=== PATIENT | male | born 1995 | race Caucasian/White ===

== ENCOUNTER 2017-04-01 16:26 | Emergency (ER) | payer SELFPAY ==
[2017-04-01 16:32] VITALS: BP 120/65; PULSE 60; TEMP 98; BMI 26.3
--- NOTE | 2017-04-01 17:19 | PDOC ---
History of Present Illness - General Chief Complaint: Bite Stated Complaint: REDNESS TO AFFECTED AREA Time Seen by Provider: 04/01/17 16:49 History Source: Patient Exam Limitations: No Limitations - History of Present Illness Initial Comments: CHIEF COMPLAINT: 21 y/o afebrile male with no significant PMH c/o left leg wound. HISTORY OF PRESENT ILLNESS: The patient states he thinks he got a mosquito bite 2 days ago on his lower left leg. He started scratching at it and eventually he scratched the scab off. He states it then got red and started draining yellow fluid. He denies f/c, n/v/d, streaking, numbness/tingling in affected extremity. Vital signs on arrival are within normal limits. REVIEW OF SYSTEMS: GENERAL/CONSTITUTIONAL: No fever/chills. No weakness. No weight change. MUSCULOSKELETAL: +open wound to lower left leg. No neck or back pain. SKIN: No rash or easy bruising. NEUROLOGIC: No headache, vertigo, loss of consciousness, or loss of sensation. PHYSICAL EXAM: VITAL_SIGNS: within normal limits GENERAL_APPEARANCE: alert, cooperative, no obvious discomfort. The patient is ambulatory with normal gait. MENTAL_STATUS: speech clear, oriented X 3, responds appropriately to questions. NEURO: motor intact and sensory intact in injured extremity. EXTREMITIES: 0.5cm raised open wound on left distal, posterior lower extremity that is yellow and crusted with 1cm of surrounding tender and hard erythema. NO streaking. SKIN: warm, dry, good color. Past History - Past Medical History Allergies/Adverse Reactions: Allergies Allergy/AdvReac Type Severity Reaction Status Date / Time No Known Allergies Allergy Verified 04/01/17 16:32 Home Medications: Ambulatory Orders Amox-Tr/K Cl [Augmentin - 875Mg Tablet] 1 tab PO BID #14 tablet 04/01/17 Other medical history: NONE - Psycho/Social/Smoking Cessation Hx Suicidal Ideation: No Smoking History: Current every day smoker Number of Cigarettes Smoked Daily: 3 Information on smoking cessation initiated: Yes 'Breaking Loose' booklet given: 04/01/17 Hx Alcohol Use: Yes (RARE) Drug/Substance Use Hx: No Substance Use Type: None *Physical Exam - Vital Signs Last Vital Signs Temp Pulse Resp BP Pulse Ox 98.0 F 60 20 120/65 99 04/01/17 16:30 04/01/17 16:30 04/01/17 16:30 04/01/17 16:30 04/01/17 16:30 Medical Decision Making - Medical Decision Making A/P: 21 y/o male with infected leg wound. Will send home with rx for augmentin. Instructed him to take entire course and to apply warm compresses to the area multiple times per day. Suggested he keep area clean and not pick at it. Instructed him to return to the ER immediately with any worsening or concerning symptoms. The patient verbalizes understanding of all instructions, has no further questions and is awaiting discharge. *DC/Admit/Observation/Transfer Diagnosis at time of Disposition: Cellulitis Qualifiers: Site of cellulitis: extremity Site of cellulitis of extremity: lower extremity Laterality: left Qualified Code(s): L03.116 - Cellulitis of left lower limb - Prescriptions Prescriptions: Amox-Tr/K Cl [Augmentin - 875Mg Tablet] 1 tab PO BID #14 tablet - Patient Instructions Printed Discharge Instructions: DI for Cellulitis -- Adult Additional Instructions: Discharge Instructions: -A prescription for antibiotics was sent to your pharmacy; please take as directed for entire 7 days -Apply warm compresses to affected area multiple times per day -Follow up with your doctor within 1 week. -Return to the ER with any worsening or concerning symptoms.
== END 2017-04-01 17:26 | disposition home or self-care (01) ==
LOC: JERFT 16:26
DX: L03.116 Cellulitis of left lower limb (principal)
CPT/HCPCS: 99281-25

== ENCOUNTER 2018-03-28 11:26 | Emergency (ER) | payer SELFPAY ==
[2018-03-28 11:33] VITALS: BP 112/61; PULSE 85; TEMP 99.7; BMI 23.1
[2018-03-28] MEDS ORDERED: DEXAMETHASONE LIQUID 0.5 MG/5 ML 240 ML BULK BOTTLE PO ONE (12:55)
[2018-03-28] MEDS ORDERED: IBUPROFEN 400 MG TABLET (FP) PO ONE ×2 (12:56→13:03)
--- NOTE | 2018-03-28 12:57 | PDOC ---
History of Present Illness - General Chief Complaint: Respiratory Stated Complaint: VOMITING, FEVER, COUGHING Time Seen by Provider: 03/28/18 12:13 History Source: Patient Exam Limitations: No Limitations - History of Present Illness Initial Comments: 03/28/18 12:59 Patient is a 22-year-old male with no past medical history who presents to the emergency department today with 3 days of fever, vomiting, nausea, sore throat. Patient states he is taking Tylenol with little relief of his symptoms. Fevers as high as 103 at home. Denies earache, cough, shortness of breath, difficulty breathing, diarrhea constipation. Past History - Travel Traveled outside of the country in the last 30 days: No Close contact w/someone who was outside of country & ill: No - Past Medical History Allergies/Adverse Reactions: Allergies Allergy/AdvReac Type Severity Reaction Status Date / Time No Known Allergies Allergy Verified 03/28/18 11:33 Home Medications: Ambulatory Orders Amoxicillin - [Amoxicillin 500mg Capsule -] 500 mg PO BID #14 capsule 03/28/18 Ibuprofen 800 mg PO TID #30 tablet 03/28/18 Ondansetron [Zofran Odt -] 4 mg SL TID #10 od.tablet 03/28/18 COPD: No - Suicide/Smoking/Psychosocial Hx Smoking History: Current every day smoker Number of Cigarettes Smoked Daily: 3 Information on smoking cessation initiated: No 'Breaking Loose' booklet given: 04/01/17 Hx Alcohol Use: Yes (RARE) Drug/Substance Use Hx: No Substance Use Type: None Review of Systems - Review of Systems Able to Perform ROS?: Yes Is the patient limited Green[place]ic proficient: No Constitutional: Yes: Chills, Fever (Tmax 103). No: Weakness HEENTM: Yes: Nose Congestion, Throat Pain, Difficulty Swallowing. No: Eye Pain , Ear Pain, Nose Bleeding Respiratory: No: Cough, Shortness of Breath, SOB with Exertion, Wheezing Cardiac (ROS): No: Chest Pain, Chest Tightness ABD/GI: Yes: Nausea, Vomiting. No: Diarrhea Integumentary: No: Erythema, Pruritus, Rash Neurological: No: Headache, Paresthesia, Weakness All Other Systems: Reviewed and Negative *Physical Exam - Vital Signs Last Vital Signs Temp Pulse Resp BP Pulse Ox 99.7 F H 85 18 112/61 98 03/28/18 11:30 03/28/18 11:30 03/28/18 11:30 03/28/18 11:30 03/28/18 11:30 - Physical Exam Comments: 03/28/18 13:02 GENERAL: Well developed, well nourished. Awake and alert. No acute distress. HEENT: Normocephalic, atraumatic. PERRLA, EOMI. No conjunctival pallor. Sclera are non- icteric. Moist mucous membranes. Oropharynx is with 3+ tonsils and exudate. Uvula midline. No trismus. NECK: Supple. Full ROM. No JVD. Carotid pulses 2+ and symmetric, without bruits. No thyromegaly. No lymphadenopathy. CARDIOVASCULAR: Regular rate and rhythm. No murmurs, rubs, or gallops. Distal pulses are 2+ and symmetric. PULMONARY: No evidence of respiratory distress. Lungs clear to auscultation bilaterally. No wheezing, rales or rhonchi. SKIN: Warm and dry. Normal capillary refill. No rashes. No jaundice. NEUROLOGICAL: Alert, awake, appropriate. Cranial nerves 2-12 intact. No deficits to light touch and temperature in face, upper extremities and lower extremities. No motor deficits in the in face, upper extremities and lower extremities. Normoreflexic in the upper and lower extremities. Normal speech. Toes are down- going bilaterally. Gait is normal without ataxia. Medical Decision Making - Medical Decision Making 03/28/18 13:03 Patient is a 22-year-old male with no past medical history who presents emergency department today with 3 days of fever, sore throat and vomiting. Clinically on exam patient with strep pharyngitis. 3+ tonsils with no uvular deviation. Centor criteria is a 5. We'll treat with amoxicillin empirically. Dose of Decadron given in the emergency department. Return precautions given. Patient says all discharge instructions and all questions were answered. *DC/Admit/Observation/Transfer Diagnosis at time of Disposition: Strep pharyngitis - Discharge Dispostion Disposition: HOME Condition at time of disposition: Stable Decision to Admit order: No - Referrals Referrals: Mariusz Leos MD [Staff Physician] - - Patient Instructions Additional Instructions: You have strep throat. This is a bacterial infection. Please take the amoxicillin 500 mg twice a day for one week. Please finish the prescription even if you feel better. You may take Motrin 800 mg every 8 hours as needed for pain or fever. Warm water gargles and cough drops and just may also help her symptoms. Please throw way your toothbrush 3 days into treatment to prevent reinfection. Please follow up with your primary care doctor next week. Return to emergency department if you have worsening pain, difficulty swallowing , changes in your voice, lightheadedness, dizziness, or any changes in your symptoms. - Post Discharge Activity Forms/Work/School Notes: Back to Work
[2018-03-28] MEDS ORDERED: DEXAMETHASONE SOD PHOSPHATE 10 MG/1 ML VIAL ONE (13:04)
== END 2018-03-28 13:12 | disposition home or self-care (01) ==
LOC: JERFT 11:26
DX: J02.0 Streptococcal pharyngitis (principal); B95.5 Unspecified streptococcus as the cause of diseases classified elsewhere; F17.210 Nicotine dependence, cigarettes, uncomplicated
CPT/HCPCS: 99281-25